=== PATIENT | female | born 1950 | race Caucasian/White ===

== ENCOUNTER 2017-12-09 14:00 | Day surgery (SDC) | payer MEDICARE ==
[~2017-12-09 14:00] MED LIST: ESTR1TAB PO; LATA0.002 EACH EYE; MELO15TA20 PO
[2017-12-09] MEDS ORDERED: METR1GEL TOPICAL (14:22)
[2017-12-09 14:27] VITALS: BP 158/83; PULSE 77; RESP 20; TEMP 98.1; O2SAT 96
[2017-12-09] MEDS ORDERED: TRIAMCINOLONE ACETONIDE 40 MG/ML VIAL ONE (14:55)
[2017-12-09 15:30] VITALS: BP 153/79; PULSE 75; RESP 18; TEMP 98.6; O2SAT 95
--- NOTE | 2017-12-09 15:32 | PD.RAD ---
Post Procedure Progress Note Pre Procedure Diagnosis: (1) Trochanteric bursitis of left hip (2) Left hip pain Post Procedure Diagnosis: (1) Trochanteric bursitis of left hip (2) Left hip pain Procedure Date: December 09, 2017 Supervising Radiologist: Lucas Obando Estimated blood loss: none Anesthesia: Local, Conscious Sedation Plan of Activity Patient to Unit: ROPU Patient Condition: Good Additional Comments: post steroid injection into the left trochanteric bursa good relief of symptoms with the injection See PACS Report for procedural detail/treatment Lucas Obando MD December 09, 2017 15:32
--- NOTE | 2017-12-09 16:43 | RADRPT ---
EXAM DATE/TIME: 12/09/2017 15:19 [facility] COMPARISON: No previous studies available for comparison. INDICATIONS : Patient presents with Bursitis at left hip joint in need of steroid injection for pain management. MEDICAL HISTORY : Shoulder pain Lumbar sciatica myositis SURGICAL HISTORY : Hysterectomy ENCOUNTER: Initial ACUITY: 2 months PAIN SCORE: 6/10 LOCATION: Left Lateral hip FLUORO TIME: 0.88 minutes IMAGE SERIES: 2 DEVICE: 25 gauge needle was placed into the left hip joint MEDICATIONS: 1.) 1 cc triamcinolone (Kenalog) IV 2.) 4 cc Lidocaine IV RESPONSE: Pre procedure pain level was 6/10. Post procedure pain level was 0/10. PROCEDURE : The risks, benefits and alternatives to the procedure were explained and verbal and written consent w as obtained. The site was prepped in sterile fashion. Full sterile technique was used, including ca p, mask, sterile gloves and gown and a large sterile sheet. Hand hygiene and 2% chlorhexidine and/or betadine/alcohol prep was utilized per protocol for cutaneous antisepsis. The skin and subcutaneous tissues were infiltrated with local anesthetic solution. Under sterile conditions and using aseptic technique with fluoroscopic and ultrasound guidance the gr eater trochanteric bursa on the left was identified and accessed under direct ultrasound visualizatio n. Following this, the prescribed mixture of Kenalog and local anesthetics was injected. The patient tolerated the procedure well and there were no complications. CONCLUSION: Uncomplicated therapeutic injection performed under fluoroscopic and ultrasound guidance. Lucas Obando MD on December 09, 2017 at 16:40 Board Certified Radiologist. This report was verified electronically.
== END 2017-12-09 16:14 | disposition home or self-care (01) ==
LOC: HROP 14:00 → HRIP 14:05 → HROP 16:14
PROVIDERS: ATTEND Radiology Body Imaging
DX: M70.62 Trochanteric bursitis, left hip (principal); M25.552 Pain in left hip; M54.32 Sciatica, left side; M60.9 Myositis, unspecified
CPT/HCPCS: 20610; J3301